=== PATIENT | male | born 1955 | race Caucasian/White ===

== ENCOUNTER 2020-05-30 14:02 | Emergency (ER) | payer OTHER ==
[2020-05-30 14:42] VITALS: BMI 30.7
[2020-05-30] MEDS ORDERED: ACETAMINOPHEN 1000 MG/100 ML VIAL (NON FORMULARY) IVPB ONE (15:17)
[2020-05-30] MEDS ORDERED: ACETAMINOPHEN INJECTION 100 ML IVPB ONE (15:57)
[2020-05-30 16:18] LABS: BASO % 1.2 % (0-2.0); EOS % 3.6 % (0-4.5); HEMATOCRIT 48.9 % (35.4-49); HEMOGLOBIN 16.7 GM/dL (11.7-16.9); LYMPH % 19.3 % (8-40); MCH 29.6 pg (25.7-33.7); MCHC 34.1 g/dl (32.0-35.9); MEAN CELL VOLUME 86.8 fl (80-96); MEAN PLT VOLUME 7.6 fl (7.5-11.1); MONO % 8.9 % (3.8-10.2); PLATELET COUNT 284 K/MM3 (134-434); RBC 5.63 M/mm3 (4.00-5.60); RDW 13.6 % (11.9-15.9); WHITE BLOOD COUNT 7.2 K/mm3 (4.0-10.0)
[2020-05-30 16:38] LABS: PROTHROMBIN TIME (PATIENT) 12.3 SEC (9.7-13.0)
[2020-05-30 16:40] LABS: ACTIVATED PTT 31.7 SECONDS (25.2-36.5)
[2020-05-30 16:41] LABS: POTASSIUM 4.4 mmol/L (3.5-5.1)
[2020-05-30 16:43] LABS: ALBUMIN 3.9 g/dl (3.4-5.0); CALCIUM 9.2 mg/dL (8.5-10.1)
[2020-05-30 16:44] LABS: BLOOD UREA NITROGEN 22.2 mg/dL (7-18)
[2020-05-30] MEDS ORDERED: OXYMETAZOLINE 0.05% NASAL SOLUTION 15 ML BOTTLE NS ONE (16:44)
[2020-05-30 16:47] LABS: CREATININE 1.3 mg/dL (0.55-1.3)
[2020-05-30 16:48] LABS: BILIRUBIN,TOTAL 0.5 mg/dL (0.2-1); TOT PROT 7.4 g/dl (6.4-8.2)
[2020-05-30 19:06] VITALS: BP 153/96; PULSE 92
[2020-05-30 20:35] VITALS: TEMP 98.2
== END 2020-05-30 20:52 | disposition short-term general hospital (02) ==
LOC: JER 14:02
PROC: 3E0333Z Introduction of Anti-inflammatory into Peripheral Vein, Percutaneous Approach (ICD-10-PCS; principal; 2020-05-30)
DX: M48.061 Spinal stenosis, lumbar region without neurogenic claudication (principal)
CPT/HCPCS: 36415; 72131-TC; 74176-TC; 80053; 85025; 85610; 85730; 86850; 86900; 86901; 99285-25; J0131